=== PATIENT | male | born 1960 | race Caucasian/White ===

== ENCOUNTER 2021-11-09 17:19 | Emergency (ER) | payer OTHER, SELFPAY ==
--- NOTE | ~2021-11-09 | CT_ITS ---
EXAMINATION: CT abdomen pelvis wo con DATE: 11/09/2021 18:58 INDICATION: right lower quadrant pain TECHNIQUE: Computed tomography (CT) of the abdomen and pelvis was performed without intravenous contr ast. Automated exposure control and iterative reconstruction technique were employed. The dose-length product was 1232.23 mGy-cm. COMPARISON: None. FINDINGS: Lower thorax: Coronary artery calcification. Liver: Normal. Biliary/Gallbladder: Gallbladder is collapsed. No bile duct dilation. Pancreas: No mass or duct dilation. Spleen: Normal. Adrenals:No mass. Kidneys: Mild right hydronephrosis. 3 x 6 mm stone in the mid right ureter with mild surrounding infl ammatory change. GI tract: No small or large bowel dilation. Appendix is absent. Diverticulosis without diverticulitis . Mesentery/Peritoneum: No ascites, mass, or free air. Retroperitoneum: No mass. Atherosclerotic abdominal aortic and/or arterial calcifications. Pelvis: Bladder wall thickening, likely on the basis of outlet Osseous. Soft Tissues: Soft tissues and body wall unremarkable. Bones: No acute osseous finding. IMPRESSION: 3 x 6 mm right mid ureteral stone causing mild obstructive uropathy. Reviewed, dictated and finalized at location K.
[2021-11-09 17:22] VITALS: BP 139/93; PULSE 70; RESP 18; TEMP 36.4; O2SAT 98
--- NOTE | 2021-11-09 17:38 | ED.GENADULT ---
HPI - General Adult General Chief complaint: Unspecified <Brooke Islas PA-C - Last Filed: 11/09/21 19:43> Stated complaint: groin pain <Brooke Islas PA-C - Last Filed: 11/09/21 19:43> Time Seen by Provider: 11/09/21 17:27 <Brooke Islas PA-C - Last Filed: 11/09/21 19:43> Source: patient <MILTON Mukherjee Last Filed: 11/09/21 19:43> Mode of arrival: ambulatory <MILTON Mukherjee Last Filed: 11/09/21 19:43> Limitations: no limitations <Brooke Islas PA-C - Last Filed: 11/09/21 19:43> History of Present Illness HPI narrative: This is a 61-year-old male that presents to the emergency department for right testicular pain ongoing since late this afternoon. Reports he had an episode of diarrhea. He then started to have pain in the right groin and testicle as well. This caused him to have some nausea and vomiting. The pain has somewhat subsided since onset. Denies any history of kidney stones. Denies fever, dysuria, hematuria, testicular swelling or erythema. <Brooke Islas PA-C - Last Filed: 11/09/21 19:43> Related Data Allergies/adverse reactions: Allergies Allergy/AdvReac Type Severity Reaction Status Date / Time acetaminophen [From Vicodin] Allergy Itching Verified 11/09/21 17:30 hydrocodone [From Vicodin] Allergy Itching Verified 11/09/21 17:30 <Brooke Islas PA-C - Last Filed: 11/09/21 19:43> Review of Systems Review of Systems: CONSTITUTIONAL: Denies fever GASTROINTESTINAL: Reports abdominal pain, nausea, vomiting, and diarrhea. GENITOURINARY: Denies dysuria or hematuria. <MILTON Mukherjee Last Filed: 11/09/21 19:43> All systems reviewed & are unremarkable except as noted in HPI and below <MILTON Mukherjee Last Filed: 11/09/21 19:43> [facility]LY [facility] Past Medical History Medical History: Medical History (Updated 07/02/22 @ 19:41 by Brooke Islas PA-C) History of gastroesophageal reflux (GERD) History of hyperlipidemia History of hypertension <Brooke Islas PA-C - Last Filed: 11/09/21 19:43> Surgical History Surgical History: Surgical History (Updated 11/09/21 @ 17:59 by Brooke Islas PA-C) History of appendectomy <Brooke Islas PA-C - Last Filed: 11/09/21 19:43> Social History Social History: Social History (Updated 11/09/21 @ 17:40 by Brooke Islas PA-C) Smoking status: Never smoker <Brooke Islas PA-C - Last Filed: 11/09/21 19:43> Exam Narrative: GENERAL: Well-appearing, well-nourished, and in no acute distress. HEAD: Normocephalic, atraumatic. EYES: EOMI. CHEST: Clear to auscultation. No respiratory distress. No wheezes rales or rhonchi HEART: Regular rate and rhythm. No murmur heard. Normal peripheral pulses. ABDOMEN: Soft, nontender, nondistended, normal active bowel sounds. No CVA tenderness EXTREMITIES: Normal range of motion. No edema. SKIN: Warm, dry, no rash. NEURO: No focal deficits. Alert and oriented x3. PSYCH: Normal mood and affect <Brooke Islas PA-C - Last Filed: 11/09/21 19:43> Course [employer]IC[employer]/PA Physician Supervision I did not see this patient nor was the care plan discussed with me, labs and imaging reviewed I was available for evaluation and consultation, I agree with the documentation <Caleb Rodríguez MD - Last Filed: 11/09/21 21:23> Vital Signs Vital signs: Vital Signs Temperature 36.4 C 11/09/21 17:22 Pulse Rate 70 11/09/21 17:22 Respiratory Rate 18 11/09/21 17:22 Blood Pressure 139/93 H 11/09/21 17:22 Pulse Oximetry 98 11/09/21 17:22 Oxygen Delivery Room Air 11/09/21 17:22 Temperature 36.4 C 11/09/21 17:22 Pulse Rate 56 L 11/09/21 20:28 Respiratory Rate 18 11/09/21 20:28 Blood Pressure 140/100 H 11/09/21 20:28 Pulse Oximetry 99 11/09/21 20:28 Oxygen Delivery Room Air 11/09/21 17:22 <Brooke Islas PA-C - Last Filed: 11/09/21 19:43> Vital Signs Temperature 36.4 C
[2021-11-09 17:55] LABS: Appearance Urine Clear (Clear); Basophils Percent Auto 0.4 % (0.2-1.2); Bilirubin Urine Negative (Negative); Blood Urine 2+ (Negative); Color Urine Yellow (Yellow); Eosinophils Absolute Auto 0.1 K/mm3 (0-0.3); Eosinophils Percent Auto 0.7 % (0-4.4); Glucose Urine UA Negative (Negative); Hematocrit 43.6 % (42.0-52.0); Hemoglobin 14.6 g/dL (14.0-18.0); Immature Granulocyte Absolute 0.07 K/mm3 (0.00-0.031); Ketones Urine Negative (Negative); Leukocyte Esterase Ur Negative LEU/UL (Negative); Lymphocytes Percent Auto 25.9 % (18.3-44.2); Mean Corpuscular HGB Conc 33.5 g/dl (32-36); Mean Corpuscular Hemoglobin 28.8 pg (26-34); Mean Platelet Volume 9.7 fl (7.4-10.4); Monocytes Absolute Auto 1.1 K/mm3 (0.1-0.6); Monocytes Percent Auto 15.7 % (2.6-8.5); Neutrophils Absolute Auto 3.9 K/mm3 (1.3-6.7); Neutrophils Percent Auto 56.3 % (45.5-73.1); Nitrate Urine Negative (Negative); Platelet Count Result 189 k/mm3 (150-375); Protein Urine Negative (Negative); Red Blood Count 5.07 M/mm3 (4.6-6.20); Red Cell Distribution Width 13.5 % (11.5-14.5); Specific Grav Ur 1.015 (1.001-1.035); Urobilinogen Urine 0.2 mg/dL (<2.0); pH Urine 5.5 (5.0-9.0)
[2021-11-09 18:04] LABS: Alanine Aminotransferase 77 U/L (6-50); Albumin Level 4.5 g/dL (3.5-5.1); Alkaline Phosphatase 69 U/L (38-126); Anion Gap 8 mmol/L (8-16); Aspartate Amino Transferase 48 U/L (17-59); Blood Urea Nitrogen 18 mg/dL (9-20); Calcium 9.2 mg/dL (8.4-10.2); Carbon Dioxide 28 mmol/L (22-30); Chloride 105 mmol/L (98-107); Estimated CRCL calculation 71 ml/min; Estimated Glomerular Filt Rate 57; Glucose 98 mg/dL (65-110); Lipase 91 U/L (23-300); Sodium 141 mmol/L (137-145)
[2021-11-09 18:05] LABS: Mucus Urine Rare /lpf; RBC Urine 21-50 /hpf (0-2); Squamous Epithelial Cell Urine Rare /hpf (Few); WBC Urine 0-3 /hpf
[2021-11-09 18:07] LABS: Add Urine Microscopic? YES
[2021-11-09 20:28] VITALS: BP 140/100; PULSE 56; RESP 18; O2SAT 99
== END 2021-11-09 20:25 | disposition home or self-care (01) ==
PROVIDERS: Physician Assistant; Emergency Provider Emergency Medicine
DX: N20.1 Calculus of ureter (principal); E78.5 Hyperlipidemia, unspecified; I10 Essential (primary) hypertension
CPT/HCPCS: 36415; 74176; 80053; 81001; 83690; 85025; 99284

== ENCOUNTER 2023-03-04 10:01 | Emergency (ER) | payer OTHER, SELFPAY ==
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
[2023-03-04 10:15] VITALS: BP 146/86; PULSE 58; RESP 16; TEMP 36.8; O2SAT 99
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
[2023-03-04] MEDS: methocarbamoL 500 MG TABLET PO (11:55)
[2023-03-04] MEDS: IBUPROFEN 400 MG TABLET 800 MG PO (11:55)
[2023-03-04 12:17] VITALS: BP 141/81; PULSE 71; RESP 15; O2SAT 100
== END 2023-03-04 12:19 | disposition home or self-care (01) ==
PROVIDERS: Emergency Provider Nurse Practitioner Family
DX: S13.4XXA Sprain of ligaments of cervical spine, initial encounter (principal); S39.012A Strain of muscle, fascia and tendon of lower back, initial encounter; I10 Essential (primary) hypertension; E78.5 Hyperlipidemia, unspecified; K21.9 Gastro-esophageal reflux disease without esophagitis; M47.812 Spondylosis without myelopathy or radiculopathy, cervical region; M47.816 Spondylosis without myelopathy or radiculopathy, lumbar region; V49.40XA Driver injured in collision with unspecified motor vehicles in traffic accident, initial encounter
CPT/HCPCS: 72040; 72100; 99283; A9270